=== PATIENT | male | born 2000 | race African-American/Black ===

== ENCOUNTER 2018-03-25 23:10 | Emergency (ER) | payer MEDICAID ==
[2018-03-25 23:33] VITALS: BP 128/68
--- NOTE | 2018-03-25 23:47 | RADIOLOGY REPORT (SQ) ---
EXAM DESCRIPTION: XR FOOT 3 OR MORE VIEWS CLINICAL HISTORY: 17 years Male, injuried playing basketball COMPARISON: None. Findings: Bones, joints, and soft tissues of the XR RIGHT FOOT 3 VIEWS appear intact. IMPRESSION: No acute findings.
[2018-03-26] MEDS ORDERED: ACETAMINOPHEN 325 MG TABLET PO ONE (00:35)
--- NOTE | 2018-03-26 00:36 | ER Document Report ---
HPI - HPI Pain Level: 5 Context: Patient is a 17-year-old male who presents emergency department the chief complaint of right foot injury. Patient states he was playing basketball when he rolled his toes but denies any subluxation of the lateral aspect of the right ankle. States that this happened approximately 2 hours prior to arrival. Patient states that he took 2 Advil at home and tried ice it but had discomfort with ice that he said to come to the ER. States that he was able to ambulated on it since injury. Denies any significant swelling and improves with rest. Past Medical History - Social History Smoking Status: Never Smoker Family History: Reviewed & Not Pertinent Vertical Provider Document - CONSTITUTIONAL Agree With Documented VS: Yes Notes: PHYSICAL EXAM GENERAL: Alert, interacts well. EXTREMITIES: Right foot with minimal tenderness to palpation on the top of the foot without any focal tenderness along the metatarsals without any evidence of deformity moves all 4 extremities spontaneously. No edema, dorsalis pedis pulses 2/4 bilaterally. No cyanosis. NEUROLOGICAL: Alert and oriented x4. Normal speech. PSYCH: Normal affect, normal mood. SKIN: Warm, dry, normal turgor. No rashes or lesions noted. - INFECTION CONTROL TRAVEL OUTSIDE OF THE [place] IN LAST 30 DAYS: No Course - Re-evaluation Re-evalutation: 03/26/18 00:35 Patient is a 17-year-old male whose presentation is consistent with a sprain of the right foot no evidence of a septic joint, gout flare, dislocation, or fracture on exam and imaging. Vitals wnl. At this time, I do not see an indication for labs or further imaging. Will discharge with conservative measures, return precautions, and follow-up recommendations. - Vital Signs Vital signs: Temp Pulse Resp BP Pulse Ox 100.2 F 62 18 128/68 H 98 03/25/18 23:31 03/25/18 23:31 03/25/18 23:31 03/25/18 23:31 03/25/18 23:31 - Diagnostic Test Radiology reviewed: Image reviewed, Reports reviewed Procedures - Immobilization Right Foot Pre-Proc Neuro Vasc Exam: Normal Immobilizer type: Todd wrap, Crutches Performed by: RN Post-Proc Neuro Vasc Exam: Normal, Unchanged from pre-exam Discharge - Discharge Clinical Impression: Foot injury Qualifiers: Encounter type: initial encounter Laterality: right Qualified Code(s): S99.921A - Unspecified injury of right foot, initial encounter Condition: Good Disposition: HOME, SELF-CARE Instructions: Acetaminophen, Use of Crutches ([facility]), Use of Qtfk-Hij-Alzuqew Ibuprofen ([facility]), Ice & Elevation ([facility]), Sprain ([facility]) Referrals: ANGELICA GIPSON MD [COMMUNITY BASED STAFF] - Follow up in 3-5 days
== END 2018-03-26 01:15 | disposition home or self-care (01) ==
LOC: ER 23:10
DX: S99.921A Unspecified injury of right foot, initial encounter (principal); X50.1XXA Overexertion from prolonged static or awkward postures, initial encounter; Y93.67 Activity, basketball
CPT/HCPCS: 99283